=== PATIENT | female | born 1950 | race African-American/Black ===

== ENCOUNTER 2017-05-12 03:01 | Inpatient (IN) | payer BC, OTHER ==
[~2017-05-12] VITALS: Ht 170.2 cm; Wt 110.3 kg
[2017-05-12] MEDS ORDERED: IV NORMAL SALINE 1000ML BAG 1,000 ML IV SCH ×2 (04:00→05:56)
[2017-05-12] MEDS ORDERED: ASPIRIN CHEWABLE 81 MG TABLET. PO ONE (04:00)
[2017-05-12] MEDS ORDERED: LABETALOL 20 MG/4 ML DISP.SYRIN. IVP ONE (04:00)
[2017-05-12 04:32] LABS: BASO # 0.1 x10^3/uL (0.0-0.2); BASO % 1 % (0-3); EOS % 3 % (0-3); HEMOGLOBIN 13.1 g/dL (12.0-15.5); LYMPH # 2.7 x10^3/uL (1.0-4.8); LYMPH % 37 % (24-48); MEAN CORPUSCULAR HEMOGLOBIN 29 pg (25-35); MEAN CORPUSCULAR HGB CONC 33 g/dL (31-37); MEAN CORPUSCULAR VOLUME 88 fL (79-100); MONO % 7 % (0-9); NEUT % 53 % (31-73); PLATELET COUNT 224 x10^3/uL (140-400); RED BLOOD COUNT 4.54 x10^6/uL (3.50-5.40); RED CELL DISTRIBUTION WIDTH 13.9 % (11.5-14.5); WHITE BLOOD COUNT 7.4 x10^3/uL (4.0-11.0)
[2017-05-12 04:41] LABS: PROTHROMBIN TIME PATIENT 12.7 SEC (11.7-14.0)
[2017-05-12 04:46] LABS: CALCIUM 8.8 mg/dL (8.5-10.1); CREATININE 0.8 mg/dL (0.6-1.0); GFR 87.4; POTASSIUM 3.6 mmol/L (3.5-5.1)
[2017-05-12 04:51] LABS: ALBUMIN 3.5 g/dL (3.4-5.0); DIRECT BILIRUBIN 0.1 mg/dL (0.0-0.2); TOTAL BILIRUBIN 0.4 mg/dL (0.2-1.0); TOTAL PROTEIN 7.2 g/dL (6.4-8.2)
[2017-05-12 04:59] LABS: CREATINE KINASE 107 U/L (26-192)
[2017-05-12 05:02] LABS: CKMB MASS < 0.5 ng/mL (0.0-3.6)
--- NOTE | 2017-05-12 05:18 | PHYS DOC ---
Past Medical History Past Medical History: Asthma Additional Past Medical Histor: Denies any Hx. of DM, HTN, Renal disease Past Surgical History: Hysterectomy, Tonsillectomy, Tubal ligation, Other Additional Past Surgical Histo: rotator cuff Alcohol Use: Rarely Drug Use: None Adult General Chief Complaint Chief Complaint: CHEST PAIN HPI HPI Patient is a 66 year old female who presents with complaint of chest pain 1 hour prior to arrival. Patient states that the pain is okay today in the center and right side of her chest. Patient states that the pain is pressure-like. Patient denies previous history of similar symptoms. Patient denies history of coronary artery disease. Patient states that she has had no history of known hypertension. Of note the patient had a critically elevated blood pressure at triage. Patient states that she has not been told that she has had elevated blood pressure in the past. Patient has had no associated fevers. Patient has had mild shortness of breath with her symptoms. Patient also notes that she has had swelling in her lower extremities. Patient denies nausea or vomiting. Patient has not taken any medications for her symptoms at this time. Patient rates her pain currently as 2 out of 10. Review of Systems Review of Systems Constitutional: Denies fever or chills [] Eyes: Denies change in visual acuity, redness, or eye pain [] HENT: Denies nasal congestion or sore throat [] Respiratory: Shortness of breath [] Cardiovascular: Chest pain, lower extremity edema [] GI: Denies abdominal pain, nausea, vomiting, bloody stools or diarrhea [] : Denies dysuria or hematuria [] Musculoskeletal: Denies back pain or joint pain [] Integument: Denies rash or skin lesions [] Neurologic: Denies headache, focal weakness or sensory changes [] Current Medications Current Medications Current Medications Medications (Trade) Dose Ordered Sig/Martínez Start Time Stop Time Status Last Admin Dose Admin Aspirin (Children'S Aspirin) 324 mg 1X ONCE 05/12/17 04:00 05/12/17 04:01 DC 05/12/17 04:15 324 MG Fentanyl Citrate (Fentanyl 2ml Vial) 50 mcg PRN Q2HR PRN 05/12/17 06:00 05/13/17 05:59 Hydralazine HCl (Apresoline) 10 mg PRN Q4HRS PRN 05/12/17 06:00 Labetalol HCl (Normodyne) 20 mg PRN Q2HR PRN 05/12/17 06:00 Ondansetron HCl (Zofran) 4 mg PRN Q8HRS PRN 05/12/17 06:00 05/13/17 05:59 Sodium Chloride 1,000 ml @ 100 mls/hr Q10H 05/12/17 05:56 05/13/17 05:55 Allergies Allergies Allergies Coded Allergies Type Severity Reaction Last Updated Verified codeine Allergy Mild UPSET STOMACH 05/22/15 Yes Physical Exam Physical Exam Constitutional: Alert, obese, afebrile, hypertensive. [] HENT: Normocephalic, atraumatic, bilateral external ears normal, oropharynx moist, no oral exudates, nose normal. [] Eyes: PERRLA, EOMI, conjunctiva normal, no discharge. [] Neck: Normal range of motion, no tenderness, supple, no stridor. [] Cardiovascular:Heart rate regular rhythm, no murmur [] Lungs & Thorax: Bilateral breath sounds clear to auscultation [] Abdomen: Bowel sounds normal, soft, no tenderness, no masses, no pulsatile masses. [] Skin: Warm, dry, no erythema, no rash. [] Back: No tenderness, no CVA tenderness. [] Extremities: No tenderness, no cyanosis, no clubbing, ROM intact, 1+ pitting edema in the bilateral lower extremities. [] Neurologic: Alert and oriented X 3, normal motor function, normal sensory function, no focal deficits noted. [] Current Patient Data Vital Signs Vital Signs Date Time Temp Pulse Resp B/P (MAP) Pulse Ox O2 Delivery O2 Flow Rate FiO2 05/12/17 05:55 86 14 157/81 (106) 98 Room Air 05/12/17 03:16 97.8 97.8 Lab Values Laboratory Tests Test 05/12/17 04:25 05/12/17 05:25 White Blood Count 7.4 x10^3/uL (4.0-11.0) Red Blood Count 4.54 x10^6/uL (3.50-5.40) Hemoglobin 13.1 g/dL (12.0-15.5) Hematocrit 40.0 % (36.0-47.0) Mean Corpuscular Volume 88 fL (79-100) Mean Corpuscular Hemoglobin 29 pg (25-35) Mean Corpuscular Hemoglobin Concent 33 g/dL (31-37) Red Cell Distribution Width 13.9 % (11.5-14.5) Platelet Count 224 x10^3/uL (140-400) Neutrophils (%) (Auto) 53 % (31-73) Lymphocytes (%) (Auto) 37 % (24-48) Monocytes (%) (Auto) 7 % (0-9) Eosinophils (%) (Auto) 3 % (0-3) Basophils (%) (Auto) 1 % (0-3) Neutrophils # (Auto) 4.0 x10^3uL (1.8-7.7) Lymphocytes # (Auto) 2.7 x10^3/uL (1.0-4.8) Monocytes # (Auto) 0.5 x10^3/uL (0.0-1.1) Eosinophils # (Auto) 0.2 x10^3/uL (0.0-0.7) Basophils # (Auto) 0.1 x10^3/uL (0.0-0.2) Prothrombin Time 12.7 SEC (11.7-14.0) Prothrombin Time INR 1.0 (0.8-1.1) Sodium Level 143 mmol/L (136-145) Potassium Level 3.6 mmol/L (3.5-5.1) Chloride Level 106 mmol/L (98-107) Carbon Dioxide Level 26 mmol/L (21-32) Anion Gap 11 (6-14) Blood Urea Nitrogen 11 mg/dL (7-20) Creatinine 0.8 mg/dL (0.6-1.0) Estimated GFR (Cockcroft-Gault) 87.4 Glucose Level 124 mg/dL (70-99) H Calcium Level 8.8 mg/dL (8.5-10.1) Magnesium Level 2.0 mg/dL (1.8-2.4) Total Bilirubin 0.4 mg/dL (0.2-1.0) Direct Bilirubin 0.1 mg/dL (0.0-0.2) Aspartate Amino Transferase (AST) 20 U/L (15-37) Alanine Aminotransferase (ALT) 20 U/L (14-59) Alkaline Phosphatase 81 U/L (46-116) Creatine Kinase 107 U/L (26-192) Creatine Kinase MB (Mass) < 0.5 ng/mL (0.0-3.6) Creatine Kinase MB Relative Index 0.5 % (0-4) Troponin I Quantitative < 0.017 ng/mL (0.000-0.055) OG-Uqx-B-Type Natriuretic Peptide 160 pg/mL (0-124) H Total Protein 7.2 g/dL (6.4-8.2) Albumin 3.5 g/dL (3.4-5.0) Urine Collection Type Unknown Urine Color Yellow Urine Clarity Clear Urine pH 5.5 Urine Specific [place] 1.015 Urine Protein Negative mg/dL (NEG-TRACE) Urine Glucose (UA) Negative mg/dL (NEG) Urine Ketones (Stick) Negative mg/dL (NEG) Urine Blood Negative (NEG) Urine Nitrite Negative (NEG) Urine Bilirubin Negative (NEG) Urine Urobilinogen Dipstick 0.2 mg/dL (0.2 mg/dL) Urine Leukocyte Esterase Negative (NEG) Urine RBC 0 /HPF (0-2) Urine WBC 0 /HPF (0-4) Urine Bacteria Moderate /HPF (0-FEW) Urine Mucus Mod /LPF Laboratory Tests 05/12/17 04:25 Laboratory Tests 05/12/17 04:25 EKG EKG Interpreted by me: Heart rate 101, sinus tachycardia, normal intervals, normal axis, no acute ST/T-wave abnormalities present [] Radiology/Procedures Radiology/Procedures One view AP chest x-ray interpreted by me: No infiltrate, no effusions, normal cardiac silhouette [] Course & Med Decision Making Course & Med Decision Making Pertinent Labs and Imaging studies reviewed. (See chart for details) Patient was given aspirin in the emergency department and patient's critically elevated blood pressure was treated with IV labetalol. On reevaluation, the patient's blood pressure improved from over 200 systolic to 140 systolic. The patient states that her symptoms have improved. Patient states that she is still experiencing discomfort in her chest this time. The patient will be admitted to the hospital for rule out of myocardial infarction. I spoke Dr. Warner who except care patient in hospital. A consult was placed to Dr. Leon to follow with patient in hospital. Dragon Disclaimer Dragon Disclaimer This electronic medical record was generated, in whole or in part, using a voice recognition dictation system. Departure Departure Impression: Primary Impression: Chest pain Additional Impression: Accelerated hypertension Disposition: 09 ADMITTED INPATIENT Admitting Physician: Rafa Warner Condition: GUARDED Referrals: NO PCP (PCP) Problem Qualifiers Primary Impression: Chest pain Chest pain type: unspecified Qualified Codes: R07.9 - Chest pain, unspecified KISHA GIMENEZ MD May 12, 2017 05:18
[2017-05-12 05:50] LABS: BILIRUBIN,URINE NEGATIVE (NEG); GLUCOSE,URINE NEGATIVE (NEG); NITRITE,URINE NEGATIVE (NEG); PH,URINE 5.5; PROTEIN,URINE NEGATIVE (NEG-TRACE); UROBILINOGEN,URINE 0.2 mg/dL (0.2 mg/dL)
[2017-05-12] MEDS ORDERED: LABETALOL 20 MG/4 ML DISP.SYRIN. IVP PRN (06:00)
[2017-05-12] MEDS ORDERED: fentaNYL PF VIAL 100 MCG/2 ML VIAL IV PRN (06:00)
[2017-05-12] MEDS ORDERED: ONDANSETRON PF 4 MG/2 ML VIAL. IV PRN (06:00)
[2017-05-12] MEDS ORDERED: hydrALAZINE 20 MG/ML VIAL. IVP PRN (06:00)
[2017-05-12 06:10] LABS: BACTERIA,URINE MODERATE /HPF (0-FEW); RBC,URINE 0 /HPF (0-2); WBC,URINE 0 /HPF (0-4)
[2017-05-12 07:45] VITALS: BP 157/89
--- NOTE | 2017-05-12 07:52 | RAD ---
EXAM: CHEST 1 VIEW History: Chest pain COMPARISON: 03/06/2010 TECHNIQUE: Single portable radiograph of the chest FINDINGS: The cardiac silhouette is unremarkable. The lungs are clear bilaterally. The costophrenic sulci are clear and well demarcated. IMPRESSION: No radiographic evidence of an acute cardiopulmonary process.
--- NOTE | 2017-05-12 10:56 | PDOC2 ---
CARDIOLOGY CONSULT NOTE CHEIF COMPLAINT: Chest pain Problems: HPI: 66 y.o woman in her usual state of health presenting with chest pain. No significant cardiac history. She had some chest pain on the right side, with pressure and radiation to her right arm. Denies any prior such symptoms. Remotely had a stress test for unclear reasons. No dyspnea on exertion but over the last two weeks has had some lower ext edema. no syncope or palpitations. Pain resolved currently. In ER noted to have SBP > 200 and admitted for further eval/treatment. PMHX: asthma SOCHX: No alcohol, tob or illicits. 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 FAMHX: Non contributory CURRENT MEDS: Current Medications Medications (Trade) Dose Ordered Sig/Martínez Start Time Stop Time Status Last Admin Dose Admin Aspirin (Children'S Aspirin) 324 mg 1X ONCE 05/12/17 04:00 05/12/17 04:01 DC 05/12/17 04:15 324 MG Fentanyl Citrate (Fentanyl 2ml Vial) 50 mcg PRN Q2HR PRN 05/12/17 06:00 05/13/17 05:59 Hydralazine HCl (Apresoline) 10 mg PRN Q4HRS PRN 05/12/17 06:00 Hydrochlorothiazide (Hydrodiuril) 25 mg DAILY 05/13/17 09:00 UNV Hydrochlorothiazide (Microzide) 12.5 mg 1X ONCE 05/12/17 11:00 05/12/17 11:01 UNV Labetalol HCl (Normodyne) 20 mg PRN Q2HR PRN 05/12/17 06:00 Lisinopril (Prinivil) 10 mg DAILY 05/13/17 09:00 UNV Ondansetron HCl (Zofran) 4 mg PRN Q8HRS PRN 05/12/17 06:00 05/13/17 05:59 Sodium Chloride 1,000 ml @ 100 mls/hr Q10H 05/12/17 05:56 05/13/17 05:55 05/12/17 07:30 100 MLS/HR ALLERGIES: Allergies Coded Allergies Type Severity Reaction Last Updated Verified codeine Allergy Mild UPSET STOMACH 05/22/15 Yes shellfish derived Allergy Unknown "throat swelling" 05/12/17 Yes ROS: 14 point system was reviewed and is negative other then described in HPI and past medical and surgical history. PHYSICAL EXAM: Vital Signs: Vital Signs Date Time Temp Pulse Resp B/P (MAP) Pulse Ox O2 Delivery O2 Flow Rate FiO2 05/12/17 08:00 Room Air 05/12/17 07:45 97.2 84 20 157/89 (111) 99 97.2 I & O Intake and Output 05/12/17 07:00 Intake Total 300 ml Balance 300 ml Intake IV Total 300 ml Physical Exam: GEN.: No apparent distress. Alert and oriented. HEENT: Head is normocephalic, atraumatic NECK: Supple. LUNGS: Clear to auscultation. HEART: RRR, S1, S2 present. Peripheral pulses intact ABDOMEN: Soft, nontender. Positive bowel sounds. EXTREMITIES: Without any cyanosis. NEUROLOGIC: Normal speech, normal tone PSYCHIATRIC: Normal affect, normal mood. SKIN: No ulcerations DIAGNOSTIC TESTING: Tro neg x 1. EKG not available for review. Tele unremarkable. CBC/BMP wnl. ASSESSMENT: 1. Hypertensive urgency with unstable angina. 2. Probable diastolic heart failure - acute PLAN: 1. Plan for echo today. 2. MPI tomorrow. 3. Lisinopril 10mg daily and HCTZ 25mg daily Supportive care otherwise from CV perspective. Thanks for consult. RICARDA RAINEY MD May 12, 2017 10:56
[2017-05-12 11:00] VITALS: BP 133/69
[2017-05-12] MEDS ORDERED: hydroCHLOROthiazide 12.5 MG CAPSULE PO ONE (11:00)
[2017-05-12] MEDS ORDERED: LISINOPRIL 10 MG TABLET PO ONE (11:00)
[2017-05-12] MEDS ORDERED: CETI10TA22 PO (11:34)
[2017-05-12] MEDS ORDERED: BREO ELLIPTA 21 EACH IH (11:34)
[2017-05-12] MEDS: ACETAMINOPHEN 325 MG TABLET. PO PRN ×2 (11:47→18:08)
[2017-05-12] MEDS: CETIRIZINE HCL 10 MG TABLET. PO SCH (11:47)
[2017-05-12] MEDS: ALBUTEROL SULFATE 2.5 MG/3 ML NEBU. NEB SCH ×3 (12:00→18:56)
[2017-05-12] MEDS: BUDESONIDE 0.5 MG/2 ML NEBU. NEB SCH ×2 (12:00→18:55)
--- NOTE | 2017-05-12 12:21 | EKG ---
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
--- NOTE | 2017-05-12 12:52 | CARD ---
APPROVED REPORT EXAM: Two-dimensional and M-mode echocardiogram with Doppler and color Doppler. Other Information Quality : Technically Limited Rhythm : NSRTechnically limited study due to body habitus. INDICATION Chest Pain 2D DIMENSIONS RVDd2.8 (2.9-3.5cm)Left Atrium(2D)3.1 (1.6-4.0cm) IVSd1.0 (0.7-1.1cm)Aortic Root(2D)3.2 (2.0-3.7cm) LVDd4.6 (3.9-5.9cm)LVOT Diameter2.1 (1.8-2.4cm) PWd1.0 (0.7-1.1cm)LVDs2.9 (2.5-4.0cm) FS (%) 34.3 %SV65.0 ml LVEF(%)64.4 (>50%) Aortic Valve AoV Peak Yonatan.132.3cm/sAoV VTI29.2cm AO Peak GR.7.0mmHgLVOT VTI 21.56cm AO Mean GR.4mmHg Mitral Valve MV E Ppkitjoc42.1cm/sMV E Peak Gr.5mmHg MV DECEL [id number] A Ogwkijlx171.9cm/s MV E Mean Gr.2mmHgMV DRI40xs E/A Ratio0.7MV A Cknxijio480os MVA (PHT)2.89cm2 TDI Lateral E' P. V6.91cm/sMedial E' P. V9.28cm/s E/Lateral E'12.5E/Medial E'9.3 Tricuspid Valve TR P. Ypjdpnzz786nc/sRAP RAJOILRN0hbSx TR Peak Gr.80bhKeUCSR77qbOe LEFT VENTRICLE The left ventricle is normal size. There is normal left ventricular wall thickness. Left ventricle sy stolic function is normal. The Ejection Fraction is 60-65%. There is grossly normal LV segmental wall motion. Limited images due to obesity. Tissue Doppler imaging reveals mild left ventricular diastoli c dysfunction. RIGHT VENTRICLE The right ventricle is normal size. The right ventricular systolic function is normal. ATRIA The left atrium size is normal. The right atrium size is normal. The interatrial septum is intact wit h no evidence for an atrial septal defect or patent foramen ovale as noted on 2-D or Doppler imaging. AORTIC VALVE Not well visualized but grossly appears to be trileaflet. Doppler and Color Flow revealed no signific ant aortic regurgitation. There is no significant aortic valvular stenosis. MITRAL VALVE Not well visualized but grossly appears normal. There is no mitral valve stenosis. Doppler and Color Flow revealed no mitral valve regurgitation noted. TRICUSPID VALVE The tricuspid valve is not well visualized. Doppler and Color Flow revealed trace to mild tricuspid r egurgitation. The PA pressure was estimated at 22 mmHg. There is no tricuspid valve stenosis. PULMONIC VALVE The pulmonic valve is not well visualized. Doppler and Color Flow revealed no pulmonic valvular regur gitation. There is no pulmonic valvular stenosis. GREAT VESSELS The aortic root is normal in size. Pulmonary veins not recorded. The IVC is dilated and collapses >50 % with inspiration. PERICARDIAL EFFUSION There is no evidence of significant pericardial effusion. Critical Notification Critical Value: No <Conclusion> Left ventricle systolic function is normal. The Ejection Fraction is 60-65%. There is grossly normal LV segmental wall motion. Limited images due to obesity.
--- NOTE | 2017-05-12 13:00 | PDOC1 ---
History and Physical Date of Admission Date of Admission DATE: 05/12/17 TIME: 12:58 Identification/Chief Complaint Chief Complaint Angina Problems: History of Present Illness History of Present Illness Past Medical History: Asthma Additional Past Medical Histor: Denies any Hx. of DM, HTN, Renal disease Past Surgical History: Hysterectomy, Tonsillectomy, Tubal ligation, Other Additional Past Surgical Histo: rotator cuff Alcohol Use: Rarely Drug Use: None HPI Patient is a 66 year old female who presents with complaint of chest pain 1 hour prior to arrival. Patient states that the pain is okay today in the center and right side of her chest. Patient states that the pain is pressure-like. Patient denies previous history of similar symptoms. Patient denies history of coronary artery disease. Patient states that she has had no history of known hypertension. Of note the patient had a critically elevated blood pressure at triage. Patient states that she has not been told that she has had elevated blood pressure in the past. Patient has had no associated fevers. Patient has had mild shortness of breath with her symptoms. Patient also notes that she has had swelling in her lower extremities. Patient denies nausea or vomiting. Patient has not taken any medications for her symptoms at this time. Patient rates her pain currently as 2 out of 10. Past Medical History: Asthma Additional Past Medical Histor: Denies any Hx. of DM, HTN, Renal disease Past Surgical History: Hysterectomy, Tonsillectomy, Tubal ligation, Other Additional Past Surgical Histo: rotator cuff Alcohol Use: Rarely Drug Use: None Pt seen and examined Dw Er Doc and RN Plan is admit for full Cardiac w/u Dictation still broken Total time 34 minutes Current Problem List Problem List Problems Medical Problems: (1) Accelerated hypertension Status: Acute (2) Chest pain Status: Acute Problems: Current Medications Current Medications Current Medications Aspirin (Children'S Aspirin) 324 mg 1X ONCE PO Last administered on 05/12/17 04:15; Start 05/12/17 at 04:00; Stop 05/12/17 at 04:01; Status DC Sodium Chloride 1,000 ml @ 100 mls/hr Q10H IV Last administered on 05/12/17 04 :16; Start 05/12/17 at 04:00; Stop 05/12/17 at 11:43; Status DC Labetalol HCl (Normodyne) 20 mg 1X ONCE IVP Last administered on 05/12/17 04: 06; Start 05/12/17 at 04:00; Stop 05/12/17 at 04:01; Status DC Ondansetron HCl (Zofran) 4 mg PRN Q8HRS PRN IV NAUSEA/VOMITING; Start 05/12/17 at 06:00; Stop 05/13/17 at 05:59 Fentanyl Citrate (Fentanyl 2ml Vial) 50 mcg PRN Q2HR PRN IV SEVERE PAIN; Start 05/12/17 at 06:00; Stop 05/13/17 at 05:59 Sodium Chloride 1,000 ml @ 100 mls/hr Q10H IV Last administered on 05/12/17 07 :30; Start 05/12/17 at 05:56; Stop 05/12/17 at 11:43; Status DC Labetalol HCl (Normodyne) 20 mg PRN Q2HR PRN IVP HYPERTENSION, SEE COMMENTS; Start 05/12/17 at 06:00 Hydralazine HCl (Apresoline) 10 mg PRN Q4HRS PRN IVP ELEVATED BP, SEE COMMENTS ; Start 05/12/17 at 06:00 Lisinopril (Prinivil) 10 mg 1X ONCE PO Last administered on 05/12/17 11:48; Start 05/12/17 at 11:00; Stop 05/12/17 at 11:01; Status DC Lisinopril (Prinivil) 10 mg DAILY PO ; Start 05/13/17 at 09:00 Hydrochlorothiazide (Microzide) 12.5 mg 1X ONCE PO Last administered on 11:48; Start 05/12/17 at 11:00; Stop 05/12/17 at 11:01; Status DC Hydrochlorothiazide (Hydrodiuril) 25 mg DAILY PO ; Start 05/13/17 at 09:00 Cetirizine HCl (ZyrTEC) 10 mg DAILY PO Last administered on 05/12/17 11:47; Start 05/12/17 at 12:00 Non-Formulary Medication 1 puff DAILY IH ; Start 05/13/17 at 09:00; Status UNV Acetaminophen (Tylenol) 650 mg PRN Q6HRS PRN PO pain Last administered on 11:47; Start 05/12/17 at 11:45 Albuterol Sulfate (Ventolin Neb Soln) 2.5 mg RTQID NEB ; Start 05/12/17 at 12:00 Budesonide (Pulmicort) 0.5 mg RTBID NEB ; Start 05/12/17 at 12:00 Active Scripts Active Reported Zyrtec (Cetirizine Hcl) 10 Mg Tablet 1 Tab PO DAILY Breo Ellipta 200-25 Mcg INH (Fluticasone/Vilanterol) 1 Each Blst.w.dev 1 Puff IH DAILY Allergies Allergies: Coded Allergies: codeine (Verified Allergy, Mild, UPSET STOMACH, 05/22/15) shellfish derived (Verified Allergy, Unknown, "throat swelling", 05/12/17) Vitals Vitals Vital Signs Date Time Temp Pulse Resp B/P (MAP) Pulse Ox O2 Delivery O2 Flow Rate FiO2 05/12/17 12:14 98 Room Air 05/12/17 11:48 88 133/69 05/12/17 11:00 97.9 22 97.9 Labs Labs Laboratory Tests Test 05/12/17 04:25 05/12/17 05:25 05/12/17 12:00 White Blood Count 7.4 x10^3/uL (4.0-11.0) Red Blood Count 4.54 x10^6/uL (3.50-5.40) Hemoglobin 13.1 g/dL (12.0-15.5) Hematocrit 40.0 % (36.0-47.0) Mean Corpuscular Volume 88 fL (79-100) Mean Corpuscular Hemoglobin 29 pg (25-35) Mean Corpuscular Hemoglobin Concent 33 g/dL (31-37) Red Cell Distribution Width 13.9 % (11.5-14.5) Platelet Count 224 x10^3/uL (140-400) Neutrophils (%) (Auto) 53 % (31-73) Lymphocytes (%) (Auto) 37 % (24-48) Monocytes (%) (Auto) 7 % (0-9) Eosinophils (%) (Auto) 3 % (0-3) Basophils (%) (Auto) 1 % (0-3) Neutrophils # (Auto) 4.0 x10^3uL (1.8-7.7) Lymphocytes # (Auto) 2.7 x10^3/uL (1.0-4.8) Monocytes # (Auto) 0.5 x10^3/uL (0.0-1.1) Eosinophils # (Auto) 0.2 x10^3/uL (0.0-0.7) Basophils # (Auto) 0.1 x10^3/uL (0.0-0.2) Prothrombin Time 12.7 SEC (11.7-14.0) Prothromb Time International Ratio 1.0 (0.8-1.1) Sodium Level 143 mmol/L (136-145) Potassium Level 3.6 mmol/L (3.5-5.1) Chloride Level 106 mmol/L (98-107) Carbon Dioxide Level 26 mmol/L (21-32) Anion Gap 11 (6-14) Blood Urea Nitrogen 11 mg/dL (7-20) Creatinine 0.8 mg/dL (0.6-1.0) Estimated GFR (Cockcroft-Gault) 87.4 Glucose Level 124 mg/dL (70-99) Calcium Level 8.8 mg/dL (8.5-10.1) Magnesium Level 2.0 mg/dL (1.8-2.4) Total Bilirubin 0.4 mg/dL (0.2-1.0) Direct Bilirubin 0.1 mg/dL (0.0-0.2) Aspartate Amino Transf (AST/SGOT) 20 U/L (15-37) Alanine Aminotransferase (ALT/SGPT) 20 U/L (14-59) Alkaline Phosphatase 81 U/L (46-116) Creatine Kinase 107 U/L (26-192) Creatine Kinase MB (Mass) < 0.5 ng/mL (0.0-3.6) Creatine Kinase MB Relative Index 0.5 % (0-4) Troponin I Quantitative < 0.017 ng/mL (0.000-0.055) < 0.017 ng/mL (0.000-0.055) XF-Hqh-X-Type Natriuretic Peptide 160 pg/mL (0-124) Total Protein 7.2 g/dL (6.4-8.2) Albumin 3.5 g/dL (3.4-5.0) Urine Collection Type Unknown Urine Color Yellow Urine Clarity Clear Urine pH 5.5 Urine Specific [place] 1.015 Urine Protein Negative mg/dL (NEG-TRACE) Urine Glucose (UA) Negative mg/dL (NEG) Urine Ketones (Stick) Negative mg/dL (NEG) Urine Blood Negative (NEG) Urine Nitrite Negative (NEG) Urine Bilirubin Negative (NEG) Urine Urobilinogen Dipstick 0.2 mg/dL (0.2 mg/dL) Urine Leukocyte Esterase Negative (NEG) Urine RBC 0 /HPF (0-2) Urine WBC 0 /HPF (0-4) Urine Bacteria Moderate /HPF (0-FEW) Urine Mucus Mod /LPF Laboratory Tests Test 05/12/17 04:25 05/12/17 05:25 05/12/17 12:00 White Blood Count 7.4 x10^3/uL (4.0-11.0) Red Blood Count 4.54 x10^6/uL (3.50-5.40) Hemoglobin 13.1 g/dL (12.0-15.5) Hematocrit 40.0 % (36.0-47.0) Mean Corpuscular Volume 88 fL (79-100) Mean Corpuscular Hemoglobin 29 pg (25-35) Mean Corpuscular Hemoglobin Concent 33 g/dL (31-37) Red Cell Distribution Width 13.9 % (11.5-14.5) Platelet Count 224 x10^3/uL (140-400) Neutrophils (%) (Auto) 53 % (31-73) Lymphocytes (%) (Auto) 37 % (24-48) Monocytes (%) (Auto) 7 % (0-9) Eosinophils (%) (Auto) 3 % (0-3) Basophils (%) (Auto) 1 % (0-3) Neutrophils # (Auto) 4.0 x10^3uL (1.8-7.7) Lymphocytes # (Auto) 2.7 x10^3/uL (1.0-4.8) Monocytes # (Auto) 0.5 x10^3/uL (0.0-1.1) Eosinophils # (Auto) 0.2 x10^3/uL (0.0-0.7) Basophils # (Auto) 0.1 x10^3/uL (0.0-0.2) Prothrombin Time 12.7 SEC (11.7-14.0) Prothromb Time International Ratio 1.0 (0.8-1.1) Sodium Level 143 mmol/L (136-145) Potassium Level 3.6 mmol/L (3.5-5.1) Chloride Level 106 mmol/L (98-107) Carbon Dioxide Level 26 mmol/L (21-32) Anion Gap 11 (6-14) Blood Urea Nitrogen 11 mg/dL (7-20) Creatinine 0.8 mg/dL (0.6-1.0) Estimated GFR (Cockcroft-Gault) 87.4 Glucose Level 124 mg/dL (70-99) Calcium Level 8.8 mg/dL (8.5-10.1) Magnesium Level 2.0 mg/dL (1.8-2.4) Total Bilirubin 0.4 mg/dL (0.2-1.0) Direct Bilirubin 0.1 mg/dL (0.0-0.2) Aspartate Amino Transf (AST/SGOT) 20 U/L (15-37) Alanine Aminotransferase (ALT/SGPT) 20 U/L (14-59) Alkaline Phosphatase 81 U/L (46-116) Creatine Kinase 107 U/L (26-192) Creatine Kinase MB (Mass) < 0.5 ng/mL (0.0-3.6) Creatine Kinase MB Relative Index 0.5 % (0-4) Troponin I Quantitative < 0.017 ng/mL (0.000-0.055) < 0.017 ng/mL (0.000-0.055) PX-Iky-F-Type Natriuretic Peptide 160 pg/mL (0-124) Total Protein 7.2 g/dL (6.4-8.2) Albumin 3.5 g/dL (3.4-5.0) Urine Collection Type Unknown Urine Color Yellow Urine Clarity Clear Urine pH 5.5 Urine Specific [place] 1.015 Urine Protein Negative mg/dL (NEG-TRACE) Urine Glucose (UA) Negative mg/dL (NEG) Urine Ketones (Stick) Negative mg/dL (NEG) Urine Blood Negative (NEG) Urine Nitrite Negative (NEG) Urine Bilirubin Negative (NEG) Urine Urobilinogen Dipstick 0.2 mg/dL (0.2 mg/dL) Urine Leukocyte Esterase Negative (NEG) Urine RBC 0 /HPF (0-2) Urine WBC 0 /HPF (0-4) Urine Bacteria Moderate /HPF (0-FEW) Urine Mucus Mod /LPF VTE Prophylaxis Ordered VTE Prophylaxis Devices: Yes VTE Pharmacological Prophylaxi: Yes FAVIAN HAM III, DO May 12, 2017 13:00
[2017-05-12 14:55] VITALS: BP 122/65
[2017-05-12 19:18] VITALS: BP 115/77
[2017-05-12 22:02] VITALS: BP 118/62
[2017-05-13 03:17] VITALS: BP 145/71
[2017-05-13 04:51] LABS: BASO % 0 % (0-3); EOS % 4 % (0-3); HEMATOCRIT 35.3 % (36.0-47.0); HEMOGLOBIN 11.7 g/dL (12.0-15.5); LYMPH # 3.2 x10^3/uL (1.0-4.8); LYMPH % 42 % (24-48); MEAN CORPUSCULAR HEMOGLOBIN 30 pg (25-35); MEAN CORPUSCULAR HGB CONC 33 g/dL (31-37); MEAN CORPUSCULAR VOLUME 89 fL (79-100); MONO % 7 % (0-9); NEUT % 47 % (31-73); PLATELET COUNT 193 x10^3/uL (140-400); RED BLOOD COUNT 3.94 x10^6/uL (3.50-5.40); RED CELL DISTRIBUTION WIDTH 14.1 % (11.5-14.5); WHITE BLOOD COUNT 7.5 x10^3/uL (4.0-11.0)
[2017-05-13 05:03] LABS: CALCIUM 8.5 mg/dL (8.5-10.1); GFR 67.5; POTASSIUM 3.5 mmol/L (3.5-5.1)
--- NOTE | 2017-05-13 06:09 | ACF ---
Admission Forms Criteria CHEST PAIN Clinical Indications for Admission to Inpatient Care (Place 'X' for any and all applicable criteria): Admission is indicated for chest pain and ANY ONE of the following(1)(2)(3)(4)(5 ): [ ]I. Angina with acute coronary syndrome (Also use Myocardial Infarction or Angina guideline) [ ]II. Hemodynamic instability [ ]III. Angina needing acute intervention as indicated by ALL of the following( 11)(12): [ ]a) Unstable angina is present as indicated by angina that is ANY ONE of the following: [ ]i) New onset [ ]ii) Nocturnal [ ]iii) Prolonged at rest [ ]iv) Progressive [ ]b) Angina warrants acute intervention as indicated by ANY ONE of the following: [ ]i) Recurrent angina (e.g, not responding as previously to treatment) [ ]ii) Angina at rest or with low-level activities despite initial medical therapy [ ]iii) New or presumably new ST-segment depression on ECG [ ]iv) Signs or symptoms of heart failure (eg, dyspnea, pulmonary edema) [ ]v) New or worsening mitral regurgitation [ ]vi) Hemodynamic instability [ ]vii) Dangerous arrhythmia (eg, sustained ventricular tachycardia) [ ]viii) History of percutaneous coronary intervention within 6 months [ ]ix) History of coronary artery bypass graft surgery [ ]x) MURALI risk score of 2 or greater[A] [ ]xi) History of Diabetes(14) [ ]xii) High-risk cardiac ischemia findings on noninvasive testing (e.g, echocardiogram, treadmill testing, nuclear scan) [ ]xiii) Chronic renal insufficiency (ie, estimated GFR less than 60 mL/min/1.732m) [ ]xiv) Left ventricular ejection fraction less than 40% [ ]IV. Evidence of DC (eg, cardiac biomarkers positive, ST-segment elevation on ECG) also use Myocardial Infarction Criteria Form. [ ]V. Pulmonary edema [ ]. Respiratory distress [ ]VII. Chest pain indicative of serious diagnosis other than coronary artery disease (eg, aortic dissection) [ ]VIII. Contraindications and/or Inappropriate clinical situations for Observational Care in patients with Chest Pain, when ANY ONE of the following is required: [ ]a) Patient with risk factor for pulmonary embolism, acute coronary syndrome and myocardial infarction (18) [ ]b) Patient with Pulmonary embolism require an average LOS of 4.3 days, therefore emergency department observation management is inappropriate 18,23 [ ]c) Painful condition/s in the elderly, have the highest rate of recidivism after emergency department observation management (10.8%) 20,21,22 [ ]d) Elevated cardiac biomarker requires intensive and exhaustive care (19) [X]IX. General contraindications and/or Inappropriate clinical situations for Observational Care in patients with Chest Pain, when ANY ONE of the following is required: [X]a) Prediction of prolongation of LOS based on ANY ONE of the following may be considered as a contraindication for observational care 2, 3, 4, 5, 6, 7, 8, 9, 10, 11 [ ]i) Age > 65 yrs. [ ]ii) Patient arriving by ambulance [ ]iii) Patient with high acuity [X]iv) Patient requiring vital sign monitoring [ ]v) Patient on IV medication [ ]b) Systolic blood pressures 180mmHg 3,12 [ ]c) Patient with altered mental status including delirium and other alteration of consciousness, (3) [ ]d) Patient whose discharge disposition will be to a care home home or rehabilitation home should not be managed in Emergency Department Observation Unit. CMS rule requires 3 days hospital stay before such placement. 3,13 [ ]e) Patient with failure to thrive due to broad array of etiologies 3,16,17 [ ]f) Inability to ambulate 3,14 Extended stay beyond goal length of stay may be needed for (1)(28): [ ]a) Specific condition diagnosed after evaluation (eg, pulmonary embolism, aortic dissection) [ ]b) Unstable angina [ ]c) Continued suspicion of acute coronary syndrome with inability to complete needed cardiac evaluation (eg, patient clinically unable to undergo stress testing) [ ]d) Myocardial infarction (Contents from ANGINA and CHEST PAIN clinical indications for admission to inpatient care have been integrated in this form) The original [email or web address] content created by [employer] has been revised. The portions of the content which have been revised are identified through the use of italic text or in bold, and [facility] has neither reviewed nor approved the modified material. All other unmodified content is copyright [employer] [email or web address]. Please see references footnoted in the original [facility] [employer] edition 2016 Admission Criteria Met?: Yes ZITA HUNT May 13, 2017 06:09
[2017-05-13 07:00] VITALS: BP 138/73
[2017-05-13] MEDS: ALBUTEROL SULFATE 2.5 MG/3 ML NEBU. NEB SCH (08:00)
[2017-05-13] MEDS: BUDESONIDE 0.5 MG/2 ML NEBU. NEB SCH ×2 (08:00→19:16)
[2017-05-13] MEDS ORDERED: REGADENOSON 0.4 MG/5 ML DISP.SYRIN. IV ONE (08:30)
[2017-05-13] MEDS ORDERED: NON FORMULARY ITEM (Fluticasone/Vilanterol (Breo Ellipta 200-25 Mcg INH) 1 PUFF) IH SCH (09:00)
[2017-05-13 11:00] VITALS: BP 167/96
[2017-05-13] MEDS: LISINOPRIL 10 MG TABLET PO SCH (11:21)
[2017-05-13] MEDS: hydroCHLOROthiazide 25 MG TABLET PO SCH (11:21)
[2017-05-13] MEDS: CETIRIZINE HCL 10 MG TABLET. PO SCH (11:22)
--- NOTE | 2017-05-13 11:38 | PDOC ---
PROGRESS NOTES Chief Complaint Chief Complaint CP ASSESSMENT AND PLAN: 1. CP: unstable angina, cardiology following. plan for MPI 2. Hypertensive urgency: fairly well controlled on Lisinopril 10mg, HCTZ 25mg daily 3 . Probable diastolic heart failure - acute: awaiting echo report History of Present Illness History of Present Illness no more CP, feels ok. mild epigastric pain Vitals Vitals Vital Signs Date Time Temp Pulse Resp B/P (MAP) Pulse Ox O2 Delivery O2 Flow Rate FiO2 05/13/17 11:21 89 138/73 05/13/17 07:00 97.7 16 98 Room Air 97.7 Physical Exam General: Alert, Oriented X3, Cooperative, No acute distress Heart: Regular rate Lungs: Clear Abdomen: Normal bowel sounds, Soft, No tenderness Extremities: No clubbing, No edema Skin: No rashes Labs LABS Laboratory Tests Test 05/12/17 12:00 05/12/17 17:55 05/13/17 03:25 Troponin I Quantitative < 0.017 ng/mL (0.000-0.055) < 0.017 ng/mL (0.000-0.055) White Blood Count 7.5 x10^3/uL (4.0-11.0) Red Blood Count 3.94 x10^6/uL (3.50-5.40) Hemoglobin 11.7 g/dL (12.0-15.5) Hematocrit 35.3 % (36.0-47.0) Mean Corpuscular Volume 89 fL (79-100) Mean Corpuscular Hemoglobin 30 pg (25-35) Mean Corpuscular Hemoglobin Concent 33 g/dL (31-37) Red Cell Distribution Width 14.1 % (11.5-14.5) Platelet Count 193 x10^3/uL (140-400) Neutrophils (%) (Auto) 47 % (31-73) Lymphocytes (%) (Auto) 42 % (24-48) Monocytes (%) (Auto) 7 % (0-9) Eosinophils (%) (Auto) 4 % (0-3) Basophils (%) (Auto) 0 % (0-3) Neutrophils # (Auto) 3.5 x10^3uL (1.8-7.7) Lymphocytes # (Auto) 3.2 x10^3/uL (1.0-4.8) Monocytes # (Auto) 0.5 x10^3/uL (0.0-1.1) Eosinophils # (Auto) 0.3 x10^3/uL (0.0-0.7) Basophils # (Auto) 0.0 x10^3/uL (0.0-0.2) Sodium Level 143 mmol/L (136-145) Potassium Level 3.5 mmol/L (3.5-5.1) Chloride Level 107 mmol/L (98-107) Carbon Dioxide Level 27 mmol/L (21-32) Anion Gap 9 (6-14) Blood Urea Nitrogen 18 mg/dL (7-20) Creatinine 1.0 mg/dL (0.6-1.0) Estimated GFR (Cockcroft-Gault) 67.5 Glucose Level 132 mg/dL (70-99) Calcium Level 8.5 mg/dL (8.5-10.1) CAROLINA MCKEON MD May 13, 2017 11:38
--- NOTE | 2017-05-13 12:07 | PDOC ---
OBED JACKSON METAL ROOFER 05/13/17 1207: CARDIO Progress Notes Date and Time Date of Service 05/13/17 Time of Evaluation 1120 Subjective Subjective: No Chest Pain, No shortness of breath, No Palpitations, Other ( lower back pain) Vitals Vitals Vital Signs Date Time Temp Pulse Resp B/P (MAP) Pulse Ox O2 Delivery O2 Flow Rate FiO2 05/13/17 11:21 89 138/73 05/13/17 11:00 97.4 18 98 Room Air 97.4 Weight Weight [ ] Input and Output Intake and Output Intake and Output 05/13/17 07:00 Intake Total 1450 ml Output Total 200 ml Balance 1250 ml Intake Oral 950 ml IV Total 500 ml Output Urine Total 200 ml # Voids 1 Laboratory Labs Laboratory Tests Test 05/12/17 17:55 05/13/17 03:25 Troponin I Quantitative < 0.017 ng/mL (0.000-0.055) White Blood Count 7.5 x10^3/uL (4.0-11.0) Red Blood Count 3.94 x10^6/uL (3.50-5.40) Hemoglobin 11.7 g/dL (12.0-15.5) Hematocrit 35.3 % (36.0-47.0) Mean Corpuscular Volume 89 fL (79-100) Mean Corpuscular Hemoglobin 30 pg (25-35) Mean Corpuscular Hemoglobin Concent 33 g/dL (31-37) Red Cell Distribution Width 14.1 % (11.5-14.5) Platelet Count 193 x10^3/uL (140-400) Neutrophils (%) (Auto) 47 % (31-73) Lymphocytes (%) (Auto) 42 % (24-48) Monocytes (%) (Auto) 7 % (0-9) Eosinophils (%) (Auto) 4 % (0-3) Basophils (%) (Auto) 0 % (0-3) Neutrophils # (Auto) 3.5 x10^3uL (1.8-7.7) Lymphocytes # (Auto) 3.2 x10^3/uL (1.0-4.8) Monocytes # (Auto) 0.5 x10^3/uL (0.0-1.1) Eosinophils # (Auto) 0.3 x10^3/uL (0.0-0.7) Basophils # (Auto) 0.0 x10^3/uL (0.0-0.2) Sodium Level 143 mmol/L (136-145) Potassium Level 3.5 mmol/L (3.5-5.1) Chloride Level 107 mmol/L (98-107) Carbon Dioxide Level 27 mmol/L (21-32) Anion Gap 9 (6-14) Blood Urea Nitrogen 18 mg/dL (7-20) Creatinine 1.0 mg/dL (0.6-1.0) Estimated GFR (Cockcroft-Gault) 67.5 Glucose Level 132 mg/dL (70-99) Calcium Level 8.5 mg/dL (8.5-10.1) Physical Exam Chest: Symmetric LUNGS: Clear to Auscultation Heart: S1S2, RRR, no murmurs Abdomen: Soft N/T Extremities: 2+ Dorsalis Pedis, No Edema, No Calf Tenderness Neurology: alert, oriented, follow commands Assessment Assessment 1. Chest pain, resolved 2. Hypertensive urgency Recommendations Echo with preserved LV function. No WMA noted. BP much better controlled; continue present medications MPI underway; if negative, may discharge from a CV standpoint. RICARDA RAINEY MD 05/13/17 1703: CARDIO Progress Notes Plan Plan Patient seen and examined. Agree with above nurse practitioner note. No acute events overnight. Normal cardiac exam today. Myocardial perfusion study is pending. Blood pressure better control. Okay for discharge from a cardiac standpoint after MPI. Thank you for this consultation. OBED JACKSON APRN May 13, 2017 12:07 RICARDA RAINEY MD May 13, 2017 17:03
[2017-05-13 15:00] VITALS: BP 157/84
[2017-05-13 19:15] VITALS: BP 133/66
[2017-05-13] MEDS: IPRATRPIUM/ALBUTEROL 0.5/2.5MG 3 ML NEBU. NEB SCH (19:16)
[2017-05-13 22:49] VITALS: BP 135/86
[2017-05-14] VITALS (11 sets, daily range): BP systolic 124–182; BP diastolic 71–94
[2017-05-14] MEDS: IPRATRPIUM/ALBUTEROL 0.5/2.5MG 3 ML NEBU. NEB SCH ×3 (07:19→15:45)
[2017-05-14] MEDS: BUDESONIDE 0.5 MG/2 ML NEBU. NEB SCH (07:20)
[2017-05-14] MEDS ORDERED: REGADENOSON 0.4 MG/5 ML DISP.SYRIN. IV ONE (08:45)
--- NOTE | 2017-05-14 10:00 | PDOC ---
PROGRESS NOTES Subjective Subjective Episode of chest pain overnight- feels this could be stress related Objective Objective Vital Signs Date Time Temp Pulse Resp B/P (MAP) Pulse Ox O2 Delivery O2 Flow Rate FiO2 05/14/17 07:00 97.6 88 20 142/87 (105) 96 Room Air 97.6 Intake and Output 05/14/17 07:00 Intake Total 960 ml Output Total 700 ml Balance 260 ml Intake Oral 960 ml Output Urine Total 700 ml # Voids 2 Physical Exam Abdomen: Soft Heart: Regular rate, Normal S1, Normal S2 Extremities: No edema, Normal pulses General: Alert, Oriented X3, Cooperative HEENT: Atraumatic Lungs: Clear to auscultation Neuro: Normal speech Psych/Mental Status: Mental status NL Plan Plan of Care Unable to obtain/maintain peripheral IV access for MPI, despite anesthesia assistance. Given recurrent chest pain and risk factors, recommend cardiac cath. R/b/a discussed with patient as is agreeable. Will plan for later this morning. Comment Review of Relevant I have reviewed the following items karen (where applicable) has been applied. Labs Laboratory Tests Test 05/12/17 12:00 05/12/17 17:55 05/13/17 03:25 Troponin I Quantitative < 0.017 ng/mL (0.000-0.055) < 0.017 ng/mL (0.000-0.055) White Blood Count 7.5 x10^3/uL (4.0-11.0) Red Blood Count 3.94 x10^6/uL (3.50-5.40) Hemoglobin 11.7 g/dL (12.0-15.5) Hematocrit 35.3 % (36.0-47.0) Mean Corpuscular Volume 89 fL (79-100) Mean Corpuscular Hemoglobin 30 pg (25-35) Mean Corpuscular Hemoglobin Concent 33 g/dL (31-37) Red Cell Distribution Width 14.1 % (11.5-14.5) Platelet Count 193 x10^3/uL (140-400) Neutrophils (%) (Auto) 47 % (31-73) Lymphocytes (%) (Auto) 42 % (24-48) Monocytes (%) (Auto) 7 % (0-9) Eosinophils (%) (Auto) 4 % (0-3) Basophils (%) (Auto) 0 % (0-3) Neutrophils # (Auto) 3.5 x10^3uL (1.8-7.7) Lymphocytes # (Auto) 3.2 x10^3/uL (1.0-4.8) Monocytes # (Auto) 0.5 x10^3/uL (0.0-1.1) Eosinophils # (Auto) 0.3 x10^3/uL (0.0-0.7) Basophils # (Auto) 0.0 x10^3/uL (0.0-0.2) Sodium Level 143 mmol/L (136-145) Potassium Level 3.5 mmol/L (3.5-5.1) Chloride Level 107 mmol/L (98-107) Carbon Dioxide Level 27 mmol/L (21-32) Anion Gap 9 (6-14) Blood Urea Nitrogen 18 mg/dL (7-20) Creatinine 1.0 mg/dL (0.6-1.0) Estimated GFR (Cockcroft-Gault) 67.5 Glucose Level 132 mg/dL (70-99) Calcium Level 8.5 mg/dL (8.5-10.1) Microbiology 05/12/17 Urine Culture - Preliminary, Resulted 05/12/17 Urine Culture Result 1 (BRANT) - Preliminary, Resulted Medications Current Medications Aspirin (Children'S Aspirin) 324 mg 1X ONCE PO Last administered on 05/12/17 04:15; Start 05/12/17 at 04:00; Stop 05/12/17 at 04:01; Status DC Sodium Chloride 1,000 ml @ 100 mls/hr Q10H IV Last administered on 05/12/17 04 :16; Start 05/12/17 at 04:00; Stop 05/12/17 at 11:43; Status DC Labetalol HCl (Normodyne) 20 mg 1X ONCE IVP Last administered on 05/12/17 04: 06; Start 05/12/17 at 04:00; Stop 05/12/17 at 04:01; Status DC Ondansetron HCl (Zofran) 4 mg PRN Q8HRS PRN IV NAUSEA/VOMITING; Start 05/12/17 at 06:00; Stop 05/13/17 at 05:59; Status DC Fentanyl Citrate (Fentanyl 2ml Vial) 50 mcg PRN Q2HR PRN IV SEVERE PAIN; Start 05/12/17 at 06:00; Stop 05/13/17 at 05:59; Status DC Sodium Chloride 1,000 ml @ 100 mls/hr Q10H IV Last administered on 05/12/17 07 :30; Start 05/12/17 at 05:56; Stop 05/12/17 at 11:43; Status DC Labetalol HCl (Normodyne) 20 mg PRN Q2HR PRN IVP HYPERTENSION, SEE COMMENTS; Start 05/12/17 at 06:00 Hydralazine HCl (Apresoline) 10 mg PRN Q4HRS PRN IVP ELEVATED BP, SEE COMMENTS ; Start 05/12/17 at 06:00 Lisinopril (Prinivil) 10 mg 1X ONCE PO Last administered on 05/12/17 11:48; Start 05/12/17 at 11:00; Stop 05/12/17 at 11:01; Status DC Lisinopril (Prinivil) 10 mg DAILY PO Last administered on 05/13/17 11:21; Start 05/13/17 at 09:00 Hydrochlorothiazide (Microzide) 12.5 mg 1X ONCE PO Last administered on 11:48; Start 05/12/17 at 11:00; Stop 05/12/17 at 11:01; Status DC Hydrochlorothiazide (Hydrodiuril) 25 mg DAILY PO Last administered on 11:21; Start 05/13/17 at 09:00 Cetirizine HCl (ZyrTEC) 10 mg DAILY PO Last administered on 05/13/17 11:22; Start 05/12/17 at 12:00 Non-Formulary Medication 1 puff DAILY IH ; Start 05/13/17 at 09:00; Status UNV Acetaminophen (Tylenol) 650 mg PRN Q6HRS PRN PO pain Last administered on 18:08; Start 05/12/17 at 11:45 Albuterol Sulfate (Ventolin Neb Soln) 2.5 mg RTQID NEB ; Start 05/12/17 at 12:00 ; Stop 05/13/17 at 17:44; Status DC Budesonide (Pulmicort) 0.5 mg RTBID NEB ; Start 05/12/17 at 12:00 Regadenoson (Lexiscan) 0.4 mg 1X ONCE IV ; Start 05/13/17 at 08:30; Stop at 08:31; Status DC Albuterol/ Ipratropium (Duoneb) 3 ml RTQID NEB ; Start 05/13/17 at 20:00 Regadenoson (Lexiscan) 0.4 mg 1X ONCE IV ; Start 05/14/17 at 08:45; Stop at 08:46; Status DC Active Scripts Active Reported Zyrtec (Cetirizine Hcl) 10 Mg Tablet 1 Tab PO DAILY Breo Ellipta 200-25 Mcg INH (Fluticasone/Vilanterol) 1 Each Blst.w.dev 1 Puff IH DAILY Vitals/I & O Vital Sign - Last 24 Hours 05/13/17 05/13/17 05/13/17 05/13/17 11:00 11:21 15:00 19:15 Temp 97.4 97.9 98.2 97.4 97.9 98.2 Pulse 86 89 97 102 Resp 18 18 16 B/P (MAP) 167/96 (119) 138/73 157/84 (108) 133/66 (88) Pulse Ox 98 100 100 O2 Delivery Room Air Room Air Room Air 05/13/17 05/13/17 05/14/17 05/14/17 19:15 22:49 02:56 07:00 Temp 98.2 97.6 97.6 98.2 97.6 97.6 Pulse 100 84 88 Resp 16 16 20 B/P (MAP) 135/86 (102) 124/71 (88) 142/87 (105) Pulse Ox 96 94 96 O2 Delivery Room Air Room Air Room Air Room Air Intake and Output 05/13/17 05/13/17 05/14/17 15:00 23:00 07:00 Intake Total 440 ml 520 ml Output Total 400 ml 300 ml Balance 40 ml 220 ml OBED JACKSON APRN May 14, 2017 10:00
[2017-05-14] MEDS ORDERED: LIDOCAINE 2% 20 ML VIAL. ONE ×2 (10:26→11:21)
[2017-05-14] MEDS ORDERED: IOHEXOL 300 MG/ML 100ML VIAL. ONE (10:26)
[2017-05-14] MEDS ORDERED: HEPARIN for IV BOLUS 10,000 UNIT/10 ML VIAL. ONE (11:13)
[2017-05-14] MEDS ORDERED: MIDAZOLAM HCL/PF 2 MG/2 ML VIAL. ONE (11:13)
[2017-05-14] MEDS ORDERED: fentaNYL PF VIAL 100 MCG/2 ML VIAL ONE ×2 (11:13→11:32)
[2017-05-14] MEDS ORDERED: NITROGLYCERIN 200 MCG/2 ML SYRINGE FOR CATH/VASC LAB. ONE (11:13)
[2017-05-14] MEDS ORDERED: VERAPAMIL 5 MG/2 ML VIAL. ONE (11:13)
[2017-05-14] MEDS ORDERED: methylPREDNISolone SOD SUCC PF 125 MG/2 ML VIAL. ONE (11:14)
[2017-05-14] MEDS ORDERED: MIDAZOLAM HCL/PF 5 MG/5 ML VIAL. ONE (11:28)
[2017-05-14] MEDS ORDERED: fentaNYL PF VIAL 250 MCG/5 ML VIAL ONE (11:28)
[2017-05-14] MEDS ORDERED: CONTRAST GIVEN MC PRN (12:00)
[2017-05-14] MEDS ORDERED: HEPARIN for IV BOLUS 10,000 UNIT/10 ML VIAL. IART ONE (12:00)
[2017-05-14] MEDS ORDERED: NITROGLYCERIN 200 MCG/2 ML SYRINGE FOR CATH/VASC LAB. IART ONE (12:00)
[2017-05-14] MEDS ORDERED: MIDAZOLAM HCL/PF 2 MG/2 ML VIAL. IV ONE (12:00)
[2017-05-14] MEDS ORDERED: IOHEXOL 300 MG/ML 100ML VIAL. IART ONE (12:00)
[2017-05-14] MEDS ORDERED: fentaNYL PF VIAL 100 MCG/2 ML VIAL IV ONE (12:00)
[2017-05-14] MEDS ORDERED: methylPREDNISolone SOD SUCC PF 125 MG/2 ML VIAL. IV ONE (12:00)
[2017-05-14] MEDS ORDERED: LIDOCAINE 2% 20 ML VIAL. IJ ONE (12:00)
[2017-05-14] MEDS ORDERED: VERAPAMIL 5 MG/2 ML VIAL. IART ONE (12:00)
[2017-05-14] MEDS ORDERED: MIDAZOLAM HCL/PF 5 MG/5 ML VIAL. IV ONE (12:00)
--- NOTE | 2017-05-14 12:10 | CARD ---
APPROVED REPORT Procedure(s) performed: 36 Minutes of moderate sedation Coronary angiography Left heart catheterization HISTORY The patient is a 66 year-old female with a history of : hypertension, dyslipidemia. INDICATION The indication(s) include : atypical chest pain , patient is a 66 y.o woman with multiple risk factor s presented to the hospital with recurrent chest pain and initially was due to undergo a stress test but due to persistent pain, ultiimately underwent a heart cath. . CASE TECHNIQUE During this case, Fluoroscopy and low osmolar contrast were used for imaging. PROCEDURE NARRATIVE The patient was brought electively to the cardiac catheterization lab. A timeout was performed confi rming the patient's name, date of , procedure, and site of procedure. All necessary personnel w ere wearing the appropriate protective equipment and radiation monitor devices. After explaining the risks and benefits of the procedure and alternatives, informed consent was obtained. (See nursing no sasha for medications administered). The right groin was prepped and draped in usual sterile fashion a nd due to lack of IV access, under 2% lidocaine local anesthesia, a 5Fr sheath was placed in the RCFA . The right wrist was sterilely prepped and draped in the usual fashion. The right wrist was infiltr ated with 1 mL of 2% lidocaine for subcutaneous anesthesia. A 6 Maori Terumo glide sheath was inser shakeel into the right radial artery without difficulty. Right and left coronary angiography was perform ed using a 6Fr TIG 4.0 catheter. Left ventricular end diastolic pressure was obtained with aT cath eter and pullback was performed after left ventriculography. All catheter exchanges and advancements were performed over a guidewire. At case completion the right radial sheath was removed and a Terum o radial band was applied with 13 ml of air. The femoral vein sheath was removed via manual compress ion. The patient tolerated the procedure well and there were no immediate complications. HEMODYNAMICS: LVEDP 14 mm Hg No gradient on LV to aortic pullback. LEFT VENTRICULOGRAM: EF 55% Anterobasal: Normal. Anterolateral: Normal Apical: Normal Diaphragmatic: Normal Posterobasal: Normal CORONARY ANGIOGRAPHY: LM is a large caliber vessel with normal angiographic appearance. LAD is a large caliber vessel with normal angiographic appearance. Ramus is a moderate caliber vessel with normal angiographic apeparance. LCx is a moderate caliber dominant vessel with normal angiographic appearance. OM1 is a moderate caliber vessel with normal angiographic appearance. LPDA is a moderate caliber vessel with normal angiographic appearance. RCA is a small caliber non-dominant vessel with normal angiographic appearance. Conclusion 1. No evidence of coronary artery disease. 2. Normal LV function. 3. Normal filling pressures. Recommendations Risk factor modification and weight loss.
[2017-05-14] MEDS ORDERED: HYDR25TA9 PO (13:59)
[2017-05-14] MEDS ORDERED: LISI10TA2 PO (13:59)
--- NOTE | 2017-05-14 13:59 | PDOC3 ---
Discharge Summary* Date of Admission: May 12, 2017 Date of Discharge: May 14, 2017 Admitting Diagnosis Accelerated hypertension Chest pain Problems: Final Diagnosis Accelerated hypertension Chest pain CONSULTS Cardiology Procedures cardiac cath on 05/14 Brief Hospital Course Mrs Ayala is a 66 y/o AAF who presented with chest pain that started 1 hour prior to arrival. Pain was located in her right mid chest, pressure-like , in the ER rateed as 2/10 on the scale. She had noted some shortness of breath with the episode. Patient denies previous history of similar symptoms. Patient denied history of coronary artery disease or hypertension. On specific questioning, she affirmed swelling in her lower extremities. Patient denies nausea or vomiting or diaphoresis. She had not attempted to take any pain medications for her symptoms. In the ER, however, her systolic pressures were >200. She was admitted to the cardiac care unit for observation and further work up. She subsequently ruled out for ACS by serial enzymes and tele. She underwent echo without confirmation of suspected CHF. A MPI was planned, but could not be obtained due to difficulties in establishing peripheral IV. In discussion with her, "plan B" was put in motion with cardiac cath. This sd well was without significant findings. Patient was deemed stable for discharge with outpatient followup in the cardiology clinic. Disposition/Orders: D/C to Home CONDITION AT DISCHARGE: Improved Diet: Cardiac, Consistent Carbohydrate Scheduled Cetirizine Hcl (Zyrtec), 1 TAB PO DAILY, (Reported) Fluticasone/Vilanterol (Breo Ellipta 200-25 Mcg INH), 1 PUFF IH DAILY, (Reported ) FOLLOW UP APPOINTMENT: cardiology in 1 month Time Spent Total time spent with patient [] minutes for coordination of care, counseling, and education. CAROLINA MCKEON MD May 14, 2017 13:59
[2017-05-14] MEDS: hydroCHLOROthiazide 25 MG TABLET PO SCH (14:49)
[2017-05-14] MEDS: CETIRIZINE HCL 10 MG TABLET. PO SCH (14:50)
[2017-05-14] MEDS: LISINOPRIL 10 MG TABLET PO SCH (14:50)
== END 2017-05-14 17:50 | disposition home or self-care (01) | DRG 287 ==
LOC: ER 03:01 → 2 NORTH 05:17
PROVIDERS: ADMIT Internal Medicine; ATTEND Internal Medicine
PROC: 4A023N7 Measurement of Cardiac Sampling and Pressure, Left Heart, Percutaneous Approach (ICD-10-PCS; principal; 2017-05-14)
PROC: B2111ZZ Fluoroscopy of Multiple Coronary Arteries using Low Osmolar Contrast (ICD-10-PCS; 2017-05-14)
PROC: B2151ZZ Fluoroscopy of Left Heart using Low Osmolar Contrast (ICD-10-PCS; 2017-05-14)
DX: I20.0 Unstable angina (principal); I11.0 Hypertensive heart disease with heart failure; I16.0 Hypertensive urgency; J45.909 Unspecified asthma, uncomplicated; Z90.710 Acquired absence of both cervix and uterus; Z98.51 Tubal ligation status; Z88.5 Allergy status to narcotic agent; Z91.013 Allergy to seafood; F19.10 Other psychoactive substance abuse, uncomplicated; Z71.89 Other specified counseling; E78.5 Hyperlipidemia, unspecified
CPT/HCPCS: 36415; 71010; 80048; 80076; 81001; 82553; 83735; 83880; 84484; 85027; 85610; 87086; 93005; 93306; 93458; 94250; 94760; 96361; 96374; 99152; 99153; C1769; C1892; J2250; J2785; J2930; J3010; J3490; J7030; 99285-25

== ENCOUNTER → 2018-06-13 | Outpatient (CLI) | payer OTHER | END | disposition home or self-care (01) | LOC: MAMMO 10:47 | DX: Z12.31 Encounter for screening mammogram for malignant neoplasm of breast (principal); I11.0 Hypertensive heart disease with heart failure; I50.9 Heart failure, unspecified; E78.5 Hyperlipidemia, unspecified; J45.909 Unspecified asthma, uncomplicated; Z90.710 Acquired absence of both cervix and uterus | CPT/HCPCS: 77067 ==

== ENCOUNTER → 2018-08-13 | Outpatient (CLI) | payer OTHER ==
[2017-05-14 16:00] VITALS: BP 149/92
[~2018-08-13] MED LIST: BREO ELLIPTA 21 EACH IH; CETI10TA22 PO; HYDR25TA9 PO; LISI10TA2 PO
--- NOTE | 2018-08-13 17:30 | KCIC ---
EXAM: RIGHT KNEE, 3 VIEWS. HISTORY: Right knee pain. COMPARISON: None. FINDINGS: No fractures are identified. There appears to be mild joint space narrowing at the medial compartment. A small osteophyte is seen along the posterior aspect of the lateral femoral condyle. Alignment is normal. There is a small joint effusion. IMPRESSION: 1. 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 Small joint effusion. Electronically signed by: Padmini Lyon MD (08/13/2018 5:27 PM) [facility]
== END | disposition home or self-care (01) ==
LOC: KCIC 15:58
PROVIDERS: ATTEND Family Medicine
DX: M17.11 Unilateral primary osteoarthritis, right knee (principal); M85.861 Other specified disorders of bone density and structure, right lower leg
CPT/HCPCS: 73562

== ENCOUNTER 2019-05-04 22:02 | Emergency (ER) | payer OTHER ==
[~2019-05-04] VITALS: Ht 170.2 cm; Wt 104.3 kg
[~2019-05-04 22:02] MED LIST changes: +HYDR-2145 PO; -HYDR25TA9 PO
[2019-05-04 23:10] VITALS: BP 145/80
== END 2019-05-04 23:19 | disposition left against medical advice (07) ==
LOC: ER 22:02
DX: I10 Essential (primary) hypertension (principal); Z53.21 Procedure and treatment not carried out due to patient leaving prior to being seen by health care provider

== ENCOUNTER → 2020-01-01 | Outpatient (CLI) | payer MEDICARE, OTHER ==
[~2020-01-01] MED LIST changes: -CETI10TA22 PO; +CETI10TA24 PO
--- NOTE | 2020-01-01 15:15 | KCIC ---
EXAM: Bilateral screening mammogram. HISTORY: 69-year-old female presents for screening mammography. TECHNIQUE: Full-field digital craniocaudal and mediolateral oblique views of both breasts are obtained for evaluation. Computer aided detection with [employer] software version 9.3 was applied. COMPARISON: 06/13/2018 and 10/01/2012 BREAST PARENCHYMAL DENSITY: Level B - Scattered fibroglandular densities. FINDINGS: There are grouped calcifications of varying sizes and shapes within the posterior upper outer quadrant of the left breast. These appear to be slightly more conspicuous compared to the most recent comparison exam and increased compared to the exam dated 10/01/2012. There are few additional microcatheter calcifications within both breasts which are not appreciably changed. There are stable areas of nodularity and asymmetry. IMPRESSION: BI-RADS Category 0: Additional imaging needed. RECOMMENDATION: Further evaluation with dedicated magnification views of the microcalcifications within the upper outer quadrant of the left breast is recommended to assess calcification morphology. If your mammogram demonstrates that you have dense breast tissue, which could hide abnormalities, and if you have other risk factors for breast cancer that have been identified, you might benefit from supplemental screening tests that may be suggested by your ordering physician. Dense breast tissue, in and of itself, is a relatively common condition. This information is not provided to cause undue concern, but rather to raise your awareness and to promote discussion with your physician regarding the presence of other risk factors, in addition to dense breast tissue. A report of your mammography results will be sent to you and your physician. You should contact your physician if you have any questions or concerns regarding this report. Mammography is a sensitive method for finding small breast cancers, but it does not detect them all and is not a substitute for careful clinical examination. A negative mammogram does not negate a clinically suspicious finding and should not result in delay in biopsying a clinically suspicious abnormality. PQRS compliance statement - Patient information was entered into a reminder system with a target due date for the next mammogram. "Our facility is accredited by the [employer] Mammography Program." Electronically signed by: Gogo Villalba MD (01/01/2020 3:12 PM) [email or web address]
== END ==
LOC: KCIC MAMMO 12:50
PROVIDERS: ATTEND Family Medicine
DX: Z12.31 Encounter for screening mammogram for malignant neoplasm of breast (principal)
CPT/HCPCS: 77067

== ENCOUNTER → 2020-06-01 | Outpatient (CLI) | payer MEDICARE ==
[~2020-06-01] MED LIST changes: -CETI10TA24 PO; +CETI10TA74 PO
--- NOTE | 2020-06-01 09:20 | KCIC ---
EXAM: Left breast diagnostic mammogram. HISTORY: 69-year-old female presents for evaluation of microcalcifications within the left breast demonstrated on a mammogram dated 01/01/2020. TECHNIQUE: Spot magnification views of the left breast are obtained. COMPARISON: 01/01/2020 and 06/13/2018. FINDINGS: There has been no change in loosely clustered microcalcifications within the upper outer quadrant of the left breast. The majority of the calcifications demonstrate coarse benign morphology. There are few small calcifications which are heterogeneous. However, these are unchanged compared to a study dated 06/13/2018. The two-year course of stability favors benignity. No associated mass or architectural distortion is seen. IMPRESSION: 1. Stable loosely clustered microcalcifications within the upper outer quadrant of the left breast, the majority of which demonstrate benign morphology and others of which are indeterminant. The two-year course of stability favors benignity. The patient will be due for bilateral mammography in 6 months according to a previously established mammography interval. Therefore, diagnostic mammography including spot magnification views of the calcifications of concern within the left breast is recommended in 6 months. 2. BI-RADS Category 3: Probably benign finding(s). Short term follow up with a diagnostic lateral breast mammogram in 6 month is recommended, as described above. Electronically signed by: Gogo Villalba MD (06/01/2020 9:17 AM) [email or web address]
== END | disposition home or self-care (01) ==
LOC: KCIC MAMMO 08:34
PROVIDERS: ATTEND Family Medicine
DX: R92.0 Mammographic microcalcification found on diagnostic imaging of breast (principal)
CPT/HCPCS: 77065

== ENCOUNTER → 2021-01-26 | Outpatient (CLI) | payer MEDICARE ==
[~2021-01-26] MED LIST changes: +LISI10TA16 PO; -LISI10TA2 PO
--- NOTE | 2021-01-27 09:09 | KCIC ---
Bilateral diagnostic digital mammograms with 3-D tomosynthesis: Reason for examination: Follow-up calcifications in the left breast. Routine screening of the right b reast. Comparison is made to previous studies dated back to 06/13/2018. Bilateral mammograms in CC and oblique projections were obtained with 2-D imaging and 3-D tomosynthes is imaging on a Siemens Inspiration unit and reviewed on the workstation. Interpretation was made wit h the benefit of CAD. The skin and nipples show no abnormalities. No abnormal axillary lymph nodes are seen. The breast par enchyma shows scattered fatty and fibroglandular density. (Breast density: Category B.) There continu e to be clustered calcifications in the upper outer quadrant of the left breast. The more posterior g roup of calcifications however appears to be showing increase in number of calcifications with some u nderlying increased parenchymal density. Further evaluation with stereotactic biopsy of the calcifica tions is recommended. There are no other new dominant masses, suspicious calcifications or architectu ral distortion. Benign calcifications are present. Impression: Increasing calcifications seen in the upper outer quadrant of the left breast posteriorly. Further ev aluation with stereotactic biopsy is recommended. BI-RADS Category 4: Suspicious. These findings have been discussed with the patient and the patient's physician, Dr. Conklin nurse was notified via [employer] machine about these findings on 01/27/2021 at 9:05 AM. "Our facility is accredited by the [employer] Mammography [employer]." This patient's information has been entered into a reminder system for the patient to be notified wit h the results of her examination and a target date for the next mammogram. Electronically signed by: Kirstie Aguilera MD (01/27/2021 9:06 AM) [email or web address]
== END ==
LOC: KCIC MAMMO 14:02
PROVIDERS: ATTEND Family Medicine
DX: R92.1 Mammographic calcification found on diagnostic imaging of breast (principal)
CPT/HCPCS: 77066